=== PATIENT | male | born 1945 | race Caucasian/White ===

== ENCOUNTER → 2016-07-10 | Outpatient (CLI) | payer BC ==
[~2016-07-10] MED LIST: LISI10TA PO
[2016-07-10 10:45] LABS: BLOOD UREA NITROGEN 28 mg/dl (7-18); BUN/CREATININE RATIO 18.5 (10-20); CALCIUM 9.4 mg/dl (8.5-10.1); CARBON DIOXIDE 26 mmol/L (21-32); CHLORIDE 110 mmol/L (98-107); GLUCOSE 97 mg/dl (70-99); POTASSIUM 4.1 mmol/L (3.5-5.1); SODIUM 143 mmol/L (136-145)
== END | disposition home or self-care (01) ==
LOC: C.LAB1850 09:29
PROVIDERS: ATTEND Internal Medicine
DX: R73.9 Hyperglycemia, unspecified (principal)

== ENCOUNTER → 2017-01-09 | Outpatient (CLI) | payer BC ==
[2017-01-09 12:15] LABS: BASO % 0.9 %; BASO ABS # 0.08 K/uL (0-0.2); COMPLETE YES; EOS % 4.9 %; HEMATOCRIT 44.7 % (42-52); IG% 0.2 %; LYMPH % 12.3 %; MEAN CELL VOLUME 93.1 fL (80-100); MEAN CORPUSCULAR HEMOGLOBIN 31.9 pg (25-34); MEAN CORPUSCULAR HGB CONC 34.2 g/dl (32-36); MEAN PLATELET VOLUME 10.1 fL (7.4-10.4); NEUT % 74.7 %; PLATELET COUNT 239 K/uL (130-400); WHITE BLOOD COUNT 8.92 K/uL (4.8-10.8)
[2017-01-09 12:30] LABS: BLOOD UREA NITROGEN 24 mg/dl (7-18); BUN/CREATININE RATIO 14.1 (10-20); CALCIUM 9.3 mg/dl (8.5-10.1); CHLORIDE 112 mmol/L (98-107); GLUCOSE 102 mg/dl (70-99); POTASSIUM 4.7 mmol/L (3.5-5.1); SODIUM 141 mmol/L (136-145)
[2017-01-09 12:40] LABS: CARBON DIOXIDE 21 mmol/L (21-32)
--- NOTE | 2017-01-14 12:50 | CODING QUERY MEDICAL NECESSITY ---
SUPPORTING DIAGNOSIS NEEDED Dr. Mart, A supporting diagnosis is required for the test/procedure performed on this patient in order for us to be reimbursed by the patient's insurance. Please provide a supporting diagnosis for the following test/procedure listed below next to the test name along with your signature. *If there is no additional diagnosis for this patient that would support the following test/procedure please document that below next to the test/procedure. Test(s)/Procedure(s) that require a supporting diagnosis: * ([id number]) VITAMIN D ASSAY DIAGNOSIS: DATE OF SERVICE: 01/09/17 Provider Signature: Date: Thank you Mynor Watkins [facility] Information Management Once completed, please kindly fax back to [phone] For questions please call [phone]
== END | disposition home or self-care (01) ==
LOC: C.LAB1850 10:06
PROVIDERS: ATTEND Internal Medicine
DX: R79.89 Other specified abnormal findings of blood chemistry (principal); E55.9 Vitamin D deficiency, unspecified

== ENCOUNTER → 2017-01-15 | Outpatient (CLI) | payer BC ==
--- NOTE | 2017-01-15 09:46 | DIAGNOSTIC IMAGING REPORT ---
RENAL ULTRASOUND HISTORY: Renal insufficiency N18.3 Chronic kidney disease, stage III (moderate)[id number] COMPARISON: None FINDINGS: Right kidney: Maximum dimension 11.5 cm. No evidence for hydronephrosis. Mild cortical thinning. 2.5 cm upper pole cyst. Left kidney: Maximum dimension 10.6 cm. No evidence for hydronephrosis. Mild cortical thinning Bladder: No bladder wall thickening. The bilateral ureteral jets were identified. IMPRESSION: 1. Small right renal cyst. 2. Mild/moderate renal cortical thinning. 3. No evidence for hydronephrosis. Electronically signed by: Buster Ruiz M.D. 01/15/2017 9:44 AM Dictated Date/Time: 01/15/2017 9:38 AM
== END | disposition home or self-care (01) ==
LOC: C.ULTRBC 09:00
PROVIDERS: ATTEND Internal Medicine
DX: N18.3 Chronic kidney disease, stage 3 (moderate) (principal)

== ENCOUNTER → 2017-06-23 | Day surgery (SDC) | payer BC ==
[2017-06-16 12:44] VITALS: Ht 177.8 cm; Wt 88.6 kg
[~2017-06-23] VITALS: Ht 177.8 cm; Wt 88.6 kg
[~2017-06-23] MED LIST changes: +HydrALAZINE HCL 20 MG/ML VIAL ONE; +LIDOCAINE HCL 2% 2 ML VIAL (20MG/ML) ONE; +MIDAZOLAM HCL 1 MG/ML 2ML VIAL ONE; +ONDANSETRON INJ 2 MG/ML 2 ML VIAL ONE; +PROPOFOL IV EMULSION 10 MG/ML 20 ML VIAL IV ONE; +SODIUM CHLORIDE 0.9% 500ML 500 ML IV ONE
--- NOTE | 2017-06-23 11:50 | Endo History and Physical ---
History & Physical Date of Service: Jun 23, 2017. Chief Complaint: history of polyps Referring Physician: Dr. Stover History of Present Illness 71 yo CM who presents for colonoscopy secondary to history of colon polyps. Past Medical History Hypertension Past Surgical History Hx Cardiac Surgery: No Hx Internal Defibrillator: No Hx Pacemaker: No Hx Abdominal Surgery: Yes (APPY) Hx of Implantable Prosthesis: No Hx Post-Op Nausea and Vomiting: No Hx Cancer Surgery: No Hx Thoracic Surgery: No Hx Orthopedic: Yes (LOWER BACK FUSION, RT LEG CLOSED REDUCTION) Hx Urinary Tract Surgery: No Family History None Social History Smoking Status: Former Smoker Hx Substance Use: No Hx Alcohol Use: Yes (OCCASIONAL) Allergies Coded Allergies: No Known Allergies (Verified , 06/23/17) Current Medications Reported Home Medications Medications Dose Route/Sig Max Daily Dose Days Date Category Prinivil (Lisinopril) 10 Mg Tab 10 Mg PO QAM 12/07/14 Reported Vital Signs Weight (Kilograms): 88.64 Height (Feet): 5 Height (Inches): 10 Date Time Temp Pulse Resp B/P (MAP) Pulse Ox O2 Delivery O2 Flow Rate FiO2 06/23/17 10:54 36.6 62 14 146/67 (93) 99 Room Air Physical Exam General Appearance: WD/WN, no apparent distress Respiratory/Chest: Auscultation: breath sounds normal Cardiovascular: Heart Auscultation: RRR Abdomen: Bowel Sounds: normal Inspection & Palpation: soft, non-distended, no tenderness, guarding & rebound Assessment and Plan Assessment: 71 yo CM who presents for colonoscopy secondary to history of colon polyps. Plan: Proceed with colonoscopy.
--- NOTE | 2017-06-23 12:51 | GI REPORT ---
Procedure Date: 06/23/2017 11:24 AM Procedure: Colonoscopy Indications: High risk colon cancer surveillance: Personal history of colonic polyps Medicines: Monitored Anesthesia Care Complications: No immediate complications. Estimated Blood Loss: Estimated blood loss: none. Procedure: Pre-Anesthesia Assessment: - Prior to the procedure, a History and Physical was performed, and patient medications and allergies were reviewed. The patient's tolerance of previous anesthesia was also reviewed. The risks and benefits of the procedure and the sedation options and risks were discussed with the patient. All questions were answered, and informed consent was obtained. Prior Anticoagulants: The patient has taken no previous anticoagulant or antiplatelet agents. ASA Grade Assessment: II - A patient with mild systemic disease. After reviewing the risks and benefits, the patient was deemed in satisfactory condition to undergo the procedure. After I obtained informed consent, the scope was passed under direct vision. Throughout the procedure, the patient's blood pressure, pulse, and oxygen saturations were monitored continuously. The scope was introduced through the anus and advanced to the cecum, identified by appendiceal orifice and ileocecal valve. The colonoscopy was performed without difficulty. The patient tolerated the procedure well. The quality of the bowel preparation was good. The ileocecal valve, appendiceal orifice, and rectum were photographed. Findings: The perianal and digital rectal examinations were normal. A 4 mm polyp was found in the ascending colon. The polyp was sessile. The polyp was removed with a hot snare. Resection and retrieval were complete. A 18 mm polyp was found in the ascending colon. The polyp was flat. The polyp was removed with a saline injection-lift technique using a hot snare. The polyp was removed with a piecemeal technique using a hot snare. Resection and retrieval were complete. A 5 mm polyp was found in the transverse colon. The polyp was sessile. The polyp was removed with a hot snare. Resection and retrieval were complete. A 5 mm polyp was found in the rectum. The polyp was sessile. The polyp was removed with a hot snare. Resection and retrieval were complete. Multiple small-mouthed diverticula were found in the sigmoid colon. Non-bleeding internal hemorrhoids were found during retroflexion. The hemorrhoids were small. Impression: - One 4 mm polyp in the ascending colon, removed with a hot snare. Resected and retrieved. - One 18 mm polyp in the ascending colon, removed using injection-lift and a hot snare and removed piecemeal using a hot snare. Resected and retrieved. - One 5 mm polyp in the transverse colon, removed with a hot snare. Resected and retrieved. - One 5 mm polyp in the rectum, removed with a hot snare. Resected and retrieved. - Diverticulosis in the sigmoid colon. - Non-bleeding internal hemorrhoids. Recommendation: - Resume previous diet. - Continue present medications. - Repeat colonoscopy for surveillance based on pathology results. - Return to primary care physician as previously scheduled. Angelo Zacarias, DO 06/23/2017 12:50:52 PM This report has been signed electronically. Note Initiated On: 06/23/2017 11:24 AM I attest to the content of the Intraoperative Record and orders documented therein, exceptions below
--- NOTE | 2017-06-23 12:51 | Discharge Instructions ---
Endoscopy Patient Instructions Date / Procedure(s) Performed Jun 23, 2017. Colonoscopy Allergy Information Coded Allergies: No Known Allergies (Verified , 06/23/17) Discharge Date / Findings Jun 23, 2017. Colon polyps Diverticulosis Internal hemorrhoids Medication Instructions Restart Stopped Medication(s): OK to resume all medications today as prescribed Reported Home Medications Medications Dose Route/Sig Max Daily Dose Days Date Category Prinivil (Lisinopril) 10 Mg Tab 10 Mg PO QAM 12/07/14 Reported Provider Instructions Activity Restrictions - No exercising or heavy lifting for 24 hours. - Do not drink alcohol the day of the procedure. - Do not drive a car or operate machinery until the day after the procedure. - Do not make any important decisions or sign important papers in 24 hours after the procedure. Following Day: - Return to full activity which may include returning to work/school. Diet Start your diet with liquids and light foods (jello, soup, juice, toast). Then eat your usual diet if not nauseated. Treatment For Common After Affects For mild abdominal pain, bloating, or excessive gas: - Rest - Eat lightly - Lie on right side Follow-Up Information Follow-up with Dr. Stover as scheduled Anesthesia Information What You Should Know You have had a procedure that required some medicine to reduce anxiety and discomfort. This treatment is called moderate sedation. After receiving the treatment, you may be sleepy, but you will be able to breathe on your own. The effects of the treatment may last for several hours. Follow these instructions along with Activity/Diet recommendations noted above: * Do NOT do anything where dizziness or clumsiness would be dangerous. * Rest quietly at home today, then you can be up and about tomorrow. * Have a responsible person stay with you the rest of today. * You may have had an I.V. today. If so, you may take the dressing off later today. Recommendations Call your doctor if: * Trouble breathing * Continuous vomiting for more than 24 hours * Temperature above 101 degrees * Severe abdominal pain or bloating * Pain not relieved by pain medicine ordered * There is increased drainage or redness from any incision * A large amount of rectal bleeding greater than 2-3 tablespoons. (If you had a polyp/s removed or have hemorrhoids, a small amount of blood - from the rectum is to be expected.) * You have any unanswered questions or concerns. IN THE EVENT OF A SERIOUS EMERGENCY, GO TO THE NEAREST EMERGENCY ROOM Your discharge instructions were prepared by provider Angelo Zacarias. Patient Instructions Signature Page Phuc Grimes Patient (or Guardian) Signature/Date: I have read and understand the instructions given to me by my caregivers. Caregiver/RN/Doctor Signature/Date: The above-named patient and/or guardian has received patient instructions on this date. + Original Patient Signature Page (only) stays with chart. Please make copy for patient.
[2017-06-23 13:25] VITALS: BP 150/83; PULSE 61; O2SAT 99
--- NOTE | 2017-06-23 13:37 | Anesthesiology Progress Note ---
Anesthesia Post Op Note Date & Time Jun 23, 2017 at 13:37 Vital Signs Pain Intensity: 0 Vital Signs Past 12 Hours Date Time Temp Pulse Resp B/P (MAP) Pulse Ox O2 Delivery O2 Flow Rate FiO2 06/23/17 13:25 61 16 150/83 (105) 99 Room Air 06/23/17 13:10 61 16 135/81 (99) 98 Room Air 06/23/17 12:55 65 16 171/73 (105) 97 Room Air 06/23/17 10:54 36.6 62 14 146/67 (93) 99 Room Air Notes Mental Status: alert / awake / arousable, participated in evaluation Pt Amnestic to Procedure: Yes Nausea / Vomiting: adequately controlled Pain: adequately controlled Airway Patency, RR, SpO2: stable & adequate BP & HR: stable & adequate Hydration State: stable & adequate Anesthetic Complications: no major complications apparent
== END | disposition home or self-care (01) ==
LOC: C.GI 10:27
PROVIDERS: ATTEND Internal Medicine
DX: Z12.11 Encounter for screening for malignant neoplasm of colon (principal); D12.2 Benign neoplasm of ascending colon; D12.3 Benign neoplasm of transverse colon; K62.1 Rectal polyp; K57.30 Diverticulosis of large intestine without perforation or abscess without bleeding; K64.8 Other hemorrhoids; I10 Essential (primary) hypertension; M19.90 Unspecified osteoarthritis, unspecified site; Z86.010 Personal history of colon polyps; Z90.89 Acquired absence of other organs; Z98.1 Arthrodesis status; Z87.891 Personal history of nicotine dependence

== ENCOUNTER → 2017-07-29 | Outpatient (CLI) | payer BC ==
[~2017-07-29] MED LIST changes: -HydrALAZINE HCL 20 MG/ML VIAL ONE; -LIDOCAINE HCL 2% 2 ML VIAL (20MG/ML) ONE; -MIDAZOLAM HCL 1 MG/ML 2ML VIAL ONE; -ONDANSETRON INJ 2 MG/ML 2 ML VIAL ONE; -PROPOFOL IV EMULSION 10 MG/ML 20 ML VIAL IV ONE; -SODIUM CHLORIDE 0.9% 500ML 500 ML IV ONE
[2017-07-29 09:33] LABS: BASO % 1.7 %; BASO ABS # 0.12 K/uL (0-0.2); EOS % 14.7 %; EOS ABS # 1.07 K/uL (0-0.5); HEMATOCRIT 46.3 % (42-52); HEMOGLOBIN 15.9 g/dL (14.0-18.0); IG# 0.01 K/uL (0.00-0.02); LYMPH % 21.2 %; LYMPH ABS # 1.54 K/uL (1.2-3.4); MEAN CELL VOLUME 94.5 fL (80-100); MEAN CORPUSCULAR HEMOGLOBIN 32.4 pg (25-34); MEAN CORPUSCULAR HGB CONC 34.3 g/dl (32-36); MEAN PLATELET VOLUME 10.6 fL (7.4-10.4); MONO % 7.9 %; MONO ABS # 0.57 K/uL (0.11-0.59); NEUT % 54.4 %; NEUT ABS # 3.95 K/uL (1.4-6.5); PLATELET COUNT 223 K/uL (130-400); RED CELL DISTRIBUTION WIDTH CV 12.3 % (11.5-14.5); RED CELL DISTRIBUTION WIDTH SD 42.6 fL (36.4-46.3); WHITE BLOOD COUNT 7.26 K/uL (4.8-10.8)
[2017-07-29 10:04] LABS: ALBUMIN 3.8 gm/dl (3.4-5.0); ALT/SGPT 28 U/L (12-78); BLOOD UREA NITROGEN 25 mg/dl (7-18); CALCIUM 9.4 mg/dl (8.5-10.1); CARBON DIOXIDE 27 mmol/L (21-32); CHOLESTEROL 172 mg/dl (0-200); CREATININE 1.46 mg/dl (0.60-1.40); GLUCOSE 99 mg/dl (70-99); POTASSIUM 4.4 mmol/L (3.5-5.1); SODIUM 139 mmol/L (136-145)
[2017-07-29 10:07] LABS: ALKALINE PHOSPHATASE 98 U/L (45-117); AST/SGOT 16 U/L (15-37); LDL CHOLESTEROL CALCULATED 107 mg/dl; TOTAL PROTEIN 7.7 gm/dl (6.4-8.2)
[2017-07-29 10:15] LABS: CREATININE RANDOM URINE 90.8 mg/dl
== END | disposition home or self-care (01) ==
LOC: C.LAB1850 08:10
PROVIDERS: ATTEND Internal Medicine
DX: I12.9 Hypertensive chronic kidney disease with stage 1 through stage 4 chronic kidney disease, or unspecified chronic kidney disease (principal); N18.3 Chronic kidney disease, stage 3 (moderate); E55.9 Vitamin D deficiency, unspecified

== ENCOUNTER → 2018-02-04 | Outpatient (CLI) | payer BC ==
[2018-02-04 16:17] LABS: BASO % 0.3 %; BASO ABS # 0.04 K/uL (0-0.2); EOS % 6.4 %; EOS ABS # 0.84 K/uL (0-0.5); HEMATOCRIT 47.6 % (42-52); HEMOGLOBIN 16.5 g/dL (14.0-18.0); IG# 0.02 K/uL (0.00-0.02); LYMPH % 14.4 %; MEAN CELL VOLUME 93.9 fL (80-100); MEAN CORPUSCULAR HEMOGLOBIN 32.5 pg (25-34); MEAN CORPUSCULAR HGB CONC 34.7 g/dl (32-36); MEAN PLATELET VOLUME 10.4 fL (7.4-10.4); MONO % 6.6 %; MONO ABS # 0.87 K/uL (0.11-0.59); NEUT % 72.1 %; NEUT ABS # 9.49 K/uL (1.4-6.5); PLATELET COUNT 276 K/uL (130-400); RED CELL DISTRIBUTION WIDTH CV 12.4 % (11.5-14.5); RED CELL DISTRIBUTION WIDTH SD 42.2 fL (36.4-46.3); WHITE BLOOD COUNT 13.16 K/uL (4.8-10.8)
[2018-02-04 16:39] LABS: ALKALINE PHOSPHATASE 112 U/L (45-117); ALT/SGPT 35 U/L (12-78); AST/SGOT 17 U/L (15-37); BLOOD UREA NITROGEN 47 mg/dl (7-18); CALCIUM 8.4 mg/dl (8.5-10.1); CARBON DIOXIDE 20 mmol/L (21-32); CREATININE 1.69 mg/dl (0.60-1.40); GLUCOSE 101 mg/dl (70-99); POTASSIUM 3.8 mmol/L (3.5-5.1); SODIUM 134 mmol/L (136-145); TOTAL PROTEIN 7.9 gm/dl (6.4-8.2)
== END | disposition home or self-care (01) ==
LOC: C.LAB1850 15:30
PROVIDERS: ATTEND Internal Medicine
DX: R19.7 Diarrhea, unspecified (principal)